=== PATIENT | male | born 1975 | race Caucasian/White ===

== ENCOUNTER 2016-08-04 07:34 | Day surgery (SDC) | payer BC ==
[2016-08-04] MEDS ORDERED: TETRACAINE 0.5% OPHTH 1 DOSE AFFEYE ONE ×2 (07:46→08:20)
[2016-08-04] MEDS ORDERED: AK-DILATE 2.5% OPHTH 1 DOSE AFFEYE ONE (07:46)
[2016-08-04] MEDS ORDERED: MYDRIACIL OPHTH 1 DOSE AFFEYE ONE ×3 (07:46→07:55)
[2016-08-04] MEDS ORDERED: AK-DILATE 2.5% OPHTH 1 DOSE OP ONE ×2 (07:52→07:55)
[2016-08-04 11:17] VITALS: BP 145/93
== END 2016-08-04 08:43 | disposition home or self-care (01) ==
LOC: SURG1 07:34
PROVIDERS: ATTEND Ophthalmology
PROC: 085F3ZZ Destruction of Left Retina, Percutaneous Approach (ICD-10-PCS; principal; 2016-08-04 10:30)
DX: E11.3312 Type 2 diabetes mellitus with moderate nonproliferative diabetic retinopathy with macular edema, left eye (principal)